=== PATIENT | female | born 1995 | race Caucasian/White ===

== ENCOUNTER → 2018-10-22 | Outpatient (CLI) | payer OTHER, BC ==
[~2018-10-22] MED LIST: ASCO-182 PO; ETON1VAG7 VG; HYDR-385 PO; HYDR-653 PO; KET10 PO; LISD20CA4 PO; NORG1TAB74 PO; PRED20TA6 PO; RANI-366 PO
[2018-10-22 15:52] LABS: LDL CHOLESTEROL 145 mg/dl
== END ==
LOC: LAB 15:12
PROVIDERS: ATTEND Obstetrics & Gynecology
DX: Z11.3 Encounter for screening for infections with a predominantly sexual mode of transmission (principal); R53.83 Other fatigue; R63.5 Abnormal weight gain; L70.9 Acne, unspecified; Z11.8 Encounter for screening for other infectious and parasitic diseases
CPT/HCPCS: 82040; 82247; 82310; 82374; 82435; 82465; 82565; 82947; 83718; 84075; 84132; 84155; 84295; 84403; 84443; 84450; 84460; 84478; 84520; 85027; 87491; 87591